=== PATIENT | male | born 1975 | race Caucasian/White ===

== ENCOUNTER 2023-01-18 09:05 | Outpatient (CLI) | payer BC ==
[2023-01-18 10:42] LABS: Hemoglobin 15.7 g/dL (13.5-17.5); Mean Corpuscular HGB CONC 33.6 g/dL (32.0-36.0); Mean Corpuscular Hemoglobin 29.1 pg (27.0-33.0); Mean Corpuscular Volume 86.5 fl (81.2-95.1); Mean Platelet Volume 9.3 fl (7.4-10.4); Platelet Count 249 10x3/uL (150-450); RBC Distribution Width 12.8 % (11.5-14.5)
== END 2023-01-18 09:06 | disposition home or self-care (01) ==
LOC: LABBT 09:05
PROVIDERS: ATTEND Otolaryngology Plastic Surgery within the Head & Neck
DX: Z01.818 Encounter for other preprocedural examination (principal); J38.3 Other diseases of vocal cords
CPT/HCPCS: 85027; 93005; 93010

== ENCOUNTER 2023-05-20 11:07 | Outpatient (CLI) | payer BC | END 2023-05-20 11:08 | disposition home or self-care (01) | LOC: RAD 11:07 | PROVIDERS: ATTEND Internal Medicine Critical Care Medicine | DX: R06.00 Dyspnea, unspecified (principal); J98.4 Other disorders of lung | CPT/HCPCS: 71046 ==

== ENCOUNTER 2023-06-25 07:01 | Day surgery (SDC) | payer BC ==
[2023-06-24 13:33] VITALS: BMI 36.9
[2023-06-25] MEDS ORDERED: Oxymetazoline HCl 0.05% (30 ML BOT) ONE ×2 (07:55→08:26)
[2023-06-25] MEDS ORDERED: Bacitracin Zinc Ointment 30 gm TUBE ONE (08:26)
[2023-06-25] MEDS ORDERED: Lidocaine 1% (PF) 30 ML VIAL ONE (08:26)
[2023-06-25] MEDS ORDERED: EPINEPHrine 1 MG/ML AMP ONE ×2 (08:26→08:41)
[2023-06-25] MEDS ORDERED: Midazolam HCl 2 mg/2 ml Vial ONE (09:21)
[2023-06-25] MEDS ORDERED: Fentanyl 250 MCG/5 ML VIAL ONE (09:21)
[2023-06-25] MEDS ORDERED: Sodium Chloride 0.9% 100 ML ONE (09:30)
[2023-06-25] MEDS ORDERED: CEFAZOLIN 2 GM VIAL ONE (09:30)
[2023-06-25] MEDS ORDERED: Ondansetron PF 4 MG/2 ML Vial ONE ×2 (09:38→14:11)
[2023-06-25] MEDS ORDERED: Lidocaine 1% PF 5 ML VIAL ONE (09:38)
[2023-06-25] MEDS ORDERED: PROPOFOL 200 MG/20 ML VIAL ONE (09:38)
[2023-06-25] MEDS ORDERED: Dexamethasone 20 MG/5 ML VIAL ONE (09:38)
[2023-06-25] MEDS ORDERED: Triamcinolone 40 MG/ML VIAL ONE (12:37)
[2023-06-25] MEDS ORDERED: Ipratropium/Albuterol 3 ML NEB ONE (13:33)
[2023-06-25] MEDS ORDERED: Promethazine HCl 25 MG/ML VIAL ONE (14:28)
== END 2023-06-25 16:23 | disposition home or self-care (01) ==
LOC: SDC 07:01
PROVIDERS: ATTEND Student in an Organized Health Care Education/Training Program
PROC: 0CBS8ZX Excision of Larynx, Via Natural or Artificial Opening Endoscopic, Diagnostic (ICD-10-PCS; principal; 2023-06-25)
PROC: 099X8ZZ Drainage of Left Sphenoid Sinus, Via Natural or Artificial Opening Endoscopic (ICD-10-PCS; principal; 2023-06-25)
PROC: 099T8ZZ Drainage of Left Frontal Sinus, Via Natural or Artificial Opening Endoscopic (ICD-10-PCS; principal; 2023-06-25)
PROC: 099V8ZZ Drainage of Left Ethmoid Sinus, Via Natural or Artificial Opening Endoscopic (ICD-10-PCS; principal; 2023-06-25)
PROC: 099W8ZZ Drainage of Right Sphenoid Sinus, Via Natural or Artificial Opening Endoscopic (ICD-10-PCS; principal; 2023-06-25)
PROC: 099S8ZZ Drainage of Right Frontal Sinus, Via Natural or Artificial Opening Endoscopic (ICD-10-PCS; principal; 2023-06-25)
PROC: 099R8ZZ Drainage of Left Maxillary Sinus, Via Natural or Artificial Opening Endoscopic (ICD-10-PCS; principal; 2023-06-25)
PROC: 099U8ZZ Drainage of Right Ethmoid Sinus, Via Natural or Artificial Opening Endoscopic (ICD-10-PCS; principal; 2023-06-25)
PROC: 099Q8ZZ Drainage of Right Maxillary Sinus, Via Natural or Artificial Opening Endoscopic (ICD-10-PCS; principal; 2023-06-25)
DX: D14.1 Benign neoplasm of larynx (principal); J34.3 Hypertrophy of nasal turbinates; J34.2 Deviated nasal septum; J32.9 Chronic sinusitis, unspecified; J32.0 Chronic maxillary sinusitis; J32.1 Chronic frontal sinusitis; J32.2 Chronic ethmoidal sinusitis
CPT/HCPCS: 88305; 88342; J0171; J1100; J2001; J2250; J2405; J2550; J2704; J3010; J3301; J3490; J7620

== ENCOUNTER 2023-07-10 17:00 | Outpatient (CLI) | payer BC | END 2023-07-10 17:01 | disposition home or self-care (01) | LOC: SLEEPLAB 17:00 | PROVIDERS: ATTEND Internal Medicine Critical Care Medicine | DX: G47.33 Obstructive sleep apnea (adult) (pediatric) (principal); R06.83 Snoring; R53.83 Other fatigue; I10 Essential (primary) hypertension; G47.00 Insomnia, unspecified; J30.2 Other seasonal allergic rhinitis | CPT/HCPCS: 95800 ==

== ENCOUNTER 2023-10-30 14:00 | Outpatient (CLI) | payer BC | END 2023-10-30 14:01 | disposition home or self-care (01) | LOC: BICMAMMO 14:00 | PROVIDERS: ATTEND Internal Medicine Rheumatology | DX: M81.8 Other osteoporosis without current pathological fracture (principal) | CPT/HCPCS: 77080 ==